=== PATIENT | female | born 1980 | race Caucasian/White ===

== ENCOUNTER 2017-08-15 09:21 | Emergency (ER) | payer MEDICAID ==
[~2017-08-15] VITALS: Ht 167.6 cm; Wt 65.0 kg
[~2017-08-15 09:21] MED LIST: FLUC150T PO; NORE1CAP PO; TERC0.4C2 VAGINAL
[2017-08-15] MEDS ORDERED: BUTATAB6 PO (09:36)
[2017-08-15] MEDS ORDERED: PROP10TA6 PO (09:36)
[2017-08-15 09:39] VITALS: BP 110/67; PULSE 72; RESP 12; TEMP 98; O2SAT 100
[2017-08-15] MEDS ORDERED: ONDANSETRON HCL 4 MG/2 ML VIAL IM ONE (10:00)
[2017-08-15] MEDS ORDERED: KETOROLAC TROMETHAMINE 60 MG/2 ML (IM) VIAL IM ONE (10:00)
[2017-08-15] MEDS ORDERED: TRAM50TA PO (10:28)
--- NOTE | 2017-08-15 10:34 | PD ---
HPI Chief Complaint: Headache Time Seen by Provider: 09:44 Travel History International Travel<30 days: No Contact w/Intl Traveler<30days: No Traveled to known affect area: No History of Present Illness HPI The patient was seen and examined in the presence of the nurse. This patient complains of migraine headache. Pain is bilateral frontal throbbing. No thunderclap onset or head injury or fever. She has long-standing history of migraines. She is having them frequently over the last 3 months. She does have a neurologist who is arranging an MRI. 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) Respiratory: No Integumentary: Yes (ORAL HERPES) Migraines: Yes Thyroid Disease: No ?: Not : 8 Para: 5 Miscarriage: 2 : 1 Tubal Ligation: Yes Past Surgical History Abdominal Surgery: Yes (UMBILICAL HERNIA REPAIRED) AICD: No Body Medical Devices: NONE Cardiac Surgery: No Ear Surgery: No Endocrine Surgery: No Eye Surgery: Yes (X2) Genitourinary Surgery: No Gynecologic Surgery: Yes (PRE-CERVICAL CA REMOVED LASER) Joint Replacement: No Oral Surgery: No Pacemaker: No Thoracic Surgery: No Other Surgery: Yes Social History Alcohol Use: No Tobacco Use: No Substance Use: No Allergies-Medications (Allergen,Severity, Reaction): Coded Allergies: mushroom (Unverified Allergy, Severe, throat swelling, 08/15/17) bee venom protein (honey bee) (Unverified Allergy, Unknown, hives, ) Uncoded Allergies: seaweed (Allergy, Unknown, rash, 03/16/16) Reported Meds & Prescriptions Reported Meds & Active Scripts Active Taytulla (Norethindrone-Ethinyl Estradiol-Fe) 1-20 mg-Mcg Cap 1 Tab PO DAILY Reported Propranolol (Propranolol HCl) 10 Mg Tab 10 Mg PO Q12HR Ldwftbjrem-Vpwqcsrwtfdbb-Ydrbhqnn 50-325-40 Mg Tab 1 Tab PO Q4H PRN Do not exceed 6 tablets/day. Review of Systems HENT: Positive: Headaches Cardiovascular: No: Chest Pain or Discomfort Respiratory: No: Cough Gastrointestinal: No: Abdominal Pain Physical Exam Narrative GENERAL: Well-nourished, well-developed patient in no apparent distress. SKIN: Focused skin assessment reveals no rash and nodules. Skin is Warm and dry. HEAD: Atraumatic. Normocephalic. EYES: Pupils equal and round. No scleral icterus. No injection or drainage. ENT: No nasal bleeding or discharge. Mucous membranes pink and moist. NECK: Trachea midline. No JVD. No meningeal signs CARDIOVASCULAR: Regular rate and rhythm. No murmur appreciated. RESPIRATORY: No accessory muscle use. Clear to auscultation. Breath sounds equal bilaterally. GASTROINTESTINAL: Abdomen soft, non-tender, nondistended. Hepatic and splenic margins not palpable. MUSCULOSKELETAL: No obvious deformities. No clubbing. No cyanosis. No edema. NEUROLOGICAL: Awake and alert. No obvious cranial nerve deficits. Motor grossly within normal limits. Normal speech. PSYCHIATRIC: Appropriate mood and affect; insight and judgment normal. Data Data Last Documented VS Vital Signs Date Time Temp Pulse Resp B/P (MAP) Pulse Ox O2 Delivery O2 Flow Rate FiO2 08/15/17 09:39 98.0 72 12 110/67 (81) 100 Room Air Orders Orders Ondansetron Inj (Zofran Inj) (08/15/17 10:00) Ketorolac Inj (Toradol Inj) (08/15/17 10:00) MDM Medical Decision Making Medical Screen Exam Complete: Yes Emergency Medical Condition: Yes Medical Record Reviewed: Yes Differential Diagnosis Differential diagnosis includes migraine, tension headache, cluster headache, meningitis. Narrative Course I have reviewed the patient's electronic medical record. Presentation not consistent with subarachnoid hemorrhage or meningitis. She is neurologically intact. Gave her injection of Toradol and Zofran. She is driving. Prescription for tramadol Recommend neurology follow-up Diagnosis Primary Impression: Migraine headache without aura Qualified Codes: G43.009 - Migraine without aura, not intractable, without status migrainosus Additional Instructions: The patient was advised to follow up with their physician and return if they worsen. The patient was warned about potential sedation for the medications they will receive on prescription. Med/Other Pt SpecificInfo: Prescription(s) given Scripts Tramadol (Tramadol) 50 Mg Tab 50 MG PO Q6H Y for PAIN, #15 TAB 0 Refills Prov: Rolly Arce MD 08/15/17 Disposition: 01 DISCHARGE HOME Condition: Stable Rolly Arce MD Aug 15, 2017 10:34
[2017-08-16] MEDS ORDERED: ACYC400T PO (09:48)
[2017-08-16] MEDS ORDERED: RIZA5TAB PO (10:56)
[2017-08-22] MEDS ORDERED: ACYC400T PO (09:43)
== END 2017-08-15 11:10 | disposition home or self-care (01) ==
LOC: NEPD 09:21
DX: G43.009 Migraine without aura, not intractable, without status migrainosus (principal); Z79.899 Other long term (current) drug therapy
CPT/HCPCS: 96372; 99284; J1885; J2405

== ENCOUNTER 2017-10-18 18:45 | Emergency (ER) | payer MEDICAID ==
[~2017-10-18] VITALS: Ht 167.6 cm; Wt 64.3 kg
[~2017-10-18 18:45] MED LIST changes: +ACYC400T PO; +CLAR10CA3 PO; -FLUC150T PO; +RIZA5TAB PO; -TERC0.4C2 VAGINAL; +ZANT150T2 PO
[2017-10-18 18:59] VITALS: BP 161/74; PULSE 74; RESP 18; TEMP 98.6; O2SAT 100
--- NOTE | 2017-10-18 19:57 | PD ---
HPI Chief Complaint: Injury Time Seen by Provider: 19:50 Travel History International Travel<30 days: No Contact w/Intl Traveler<30days: No Traveled to known affect area: No History of Present Illness HPI 37-year-old female presents for evaluation of body pain. Prior to arrival she tripped on a folding table and hit her knee against a. Then as she was attempting to remove a TV from the wall the TV fell and hit her in the head. No loss of consciousness. She is complaining of generalized pain in her head, back, knee. Pain is moderate, aggravated by movement. Denies any numbness, tingling, weakness. No other complaints. 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) Respiratory: No Integumentary: Yes (ORAL HERPES) Migraines: Yes Thyroid Disease: No Tetanus Vaccination: Unknown Influenza Vaccination: No ?: Not LMP: 12-28-17 : 8 Para: 5 Miscarriage: 2 : 1 Tubal Ligation: Yes Past Surgical History Abdominal Surgery: Yes (UMBILICAL HERNIA REPAIRED) AICD: No Body Medical Devices: NONE Cardiac Surgery: No Ear Surgery: No Endocrine Surgery: No Eye Surgery: Yes (X2) Genitourinary Surgery: No Gynecologic Surgery: Yes (PRE-CERVICAL CA REMOVED LASER) Joint Replacement: No Oral Surgery: No Pacemaker: No Thoracic Surgery: No Other Surgery: Yes Social History Alcohol Use: No Tobacco Use: No Substance Use: No Allergies-Medications (Allergen,Severity, Reaction): Coded Allergies: mushroom (Verified Allergy, Severe, throat swelling, 10/18/17) bee venom protein (honey bee) (Verified Allergy, Unknown, hives, 10/18/17) Uncoded Allergies: seaweed (Allergy, Unknown, rash, 03/16/16) Reported Meds & Prescriptions Reported Meds & Active Scripts Active Claritin (Loratadine) 10 Mg Cap 10 Mg PO DAILY Acyclovir 400 Mg Tab 1 Tab PO BID Rizatriptan (Rizatriptan Benzoate) 5 Mg Tab 5 Mg PO INTERMITTENT Review of Systems Except as stated in HPI: all other systems reviewed are Neg Physical Exam Narrative GENERAL: Well-developed well-nourished female in no acute distress SKIN: Warm and dry. Abrasion noted to the anterior right knee. HEAD: Atraumatic. Normocephalic. EYES: Pupils equal and round. No scleral icterus. No injection or drainage. ENT: No nasal bleeding or discharge. Mucous membranes pink and moist. NECK: Trachea midline. No JVD. CARDIOVASCULAR: Regular rate and rhythm. No murmur appreciated. RESPIRATORY: No accessory muscle use. Clear to auscultation. Breath sounds equal bilaterally. GASTROINTESTINAL: Abdomen soft, non-tender, nondistended. Hepatic and splenic margins not palpable. MUSCULOSKELETAL: No obvious deformities. No clubbing. No cyanosis. No edema. No reproducible bony tenderness to palpation to the neck, back, arms, legs per for range of motion of the neck, arms, legs. NEUROLOGICAL: Awake and alert. No obvious cranial nerve deficits. Motor grossly within normal limits. Normal speech. Data Data Last Documented VS Vital Signs Date Time Temp Pulse Resp B/P (MAP) Pulse Ox O2 Delivery O2 Flow Rate FiO2 10/18/17 18:59 98.6 74 18 161/74 (103) 100 Orders Orders Ketorolac Inj (Toradol Inj) (10/18/17 20:00) MDM Medical Decision Making Medical Screen Exam Complete: Yes Emergency Medical Condition: Yes Medical Record Reviewed: Yes Differential Diagnosis Strain, contusion, abrasion, fracture Narrative Course The patient appears to have a back strain and a contusion/abrasion to the right knee. She is stable for discharge. Diagnosis Primary Impression: Abrasion, right knee, initial encounter Additional Impression: Back strain Additional Instructions: Rest. Avoid strenuous activity. Follow-up with primary care physician as needed. Med/Other Pt SpecificInfo: No Change to Meds Disposition: 01 DISCHARGE HOME Condition: Stable Raúl Holly Oct 18, 2017 19:57
[2017-10-18] MEDS ORDERED: KETOROLAC TROMETHAMINE 60 MG/2 ML (IM) VIAL IM ONE (20:00)
== END 2017-10-18 20:32 | disposition home or self-care (01) ==
LOC: PHEFT 18:45
DX: S80.211A Abrasion, right knee, initial encounter (principal); S39.012A Strain of muscle, fascia and tendon of lower back, initial encounter; K21.9 Gastro-esophageal reflux disease without esophagitis; W22.8XXA Striking against or struck by other objects, initial encounter; Z85.41 Personal history of malignant neoplasm of cervix uteri; Z79.899 Other long term (current) drug therapy
CPT/HCPCS: 96372; 99284; J1885